=== PATIENT | female | born 1975 | race Caucasian/White ===

== ENCOUNTER 2017-07-27 20:09 | Emergency (ER) | payer OTHER, MEDICAID ==
[~2017-07-27] VITALS: Ht 162.6 cm; Wt 68.5 kg
[2017-07-27 20:15] VITALS: Ht 162.6 cm; Wt 68.5 kg
--- NOTE | 2017-07-27 20:59 | ERD ---
ER Documentation Chief Complaint Chief Complaint tongue numbness x 3 days, lips turning to R side x 1 day, R eye blurry HPI 42-year-old female who presents emergency department complaining of difficulty swallowing using a straw. Right sided facial droop, and right-sided facial numbness. She also stated that she feels like that her tongue turns to the right side when she was drinking water this morning. Stated that this happened is morning. 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 Denies headache, throat pain, shoulder pain, back pain, abdomen, nausea, vomiting, constipation, diarrhea, loss of bowel bladder control, trauma, injury , falls, fever, chills. ROS All systems reviewed and are negative except as per history of present illness. Medications Home Meds Active Scripts Hydroxyzine Hcl* (Hydroxyzine Hcl*) 50 Mg Tablet, 50 MG PO Q6 Y for ANXIETY, # 40 TAB Prov:PASILABAN,KLAR F 07/27/17 Lorazepam* (Lorazepam*) 1 Mg Tablet, 1 MG PO Q8, #10 TAB Prov:PASILABAN,KLAR F 07/27/17 Allergies Allergies: Coded Allergies: No Known Allergy (Unverified , 07/27/17) Physical Exam Vitals Vital Signs Date Time Temp Pulse Resp B/P Pulse Ox O2 Delivery O2 Flow Rate FiO2 07/28/17 00:06 98.1 83 20 120/67 Room Air 07/27/17 20:15 98.2 103 20 131/81 100 Physical Exam Const: Awake and able to make her needs known. Head: Atraumatic Eyes: Normal Conjunctiva. Right-sided facial asymmetry. Able to close bilateral eyes. Able to raise bilateral eyebrows. ENT: Normal External Ears, Nose and Mouth. Neck: Full range of motion..~ No meningismus. Resp: Clear to auscultation bilaterally Cardio: Regular rate and rhythm, no murmurs Abd: Soft, non tender, non distended. Normal bowel sounds Skin: No petechiae or rashes Back: No midline or flank tenderness Ext: No cyanosis, or edema Neur: Awake and alert 4. Equal php website developer. Equal strength in upper and lower extremities bilaterally. No numbness or tingling sensation. Romberg test is negative. Psych: Normal Mood and Affect Result Diagram: 07/27/17211607/27/172116 Results 24 hrs Laboratory Tests Test 07/27/17 21:17 White Blood Count 8.910^3/ul Red Blood Count 4.1710^6/ul Hemoglobin 13.5g/dl Hematocrit 38.0% Mean Corpuscular Volume 91.1fl Mean Corpuscular Hemoglobin 32.4pg Mean Corpuscular Hemoglobin Concent 35.5g/dl Red Cell Distribution Width 11.9% Platelet Count 14695^3/UL Mean Platelet Volume 10.4fl Neutrophils % 63.1% Lymphocytes % 25.5% Monocytes % 6.7% Eosinophils % 3.9% Basophils % 0.6% Nucleated Red Blood Cells % 0.0/100WBC Neutrophils # 5.610^3/ul Lymphocytes # 2.310^3/ul Monocytes # 0.610^3/ul Eosinophils # 0.410^3/ul Basophils # 0.110^3/ul Nucleated Red Blood Cells # 0.010^3/ul Prothrombin Time 12.9Sec Prothrombin Time Ratio 1.0 INR International Normalized Ratio 0.96 Activated Partial Thromboplast Time 33.8Sec Sodium Level 141mmol/L Potassium Level 3.6mmol/L Chloride Level 103mmol/L Carbon Dioxide Level 27mmol/L Anion Gap 15 Blood Urea Nitrogen 7mg/dl Creatinine 0.61mg/dl Glucose Level 109mg/dl Calcium Level 9.8mg/dl Total Bilirubin 0.2mg/dl Direct Bilirubin 0.00mg/dl Indirect Bilirubin 0.2mg/dl Aspartate Amino Transf (AST/SGOT) 25IU/L Alanine Aminotransferase (ALT/SGPT) 40IU/L Alkaline Phosphatase 88IU/L Troponin I < 0.012ng/ml Total Protein 8.1g/dl Albumin 4.5g/dl Globulin 3.60g/dl Albumin/Globulin Ratio 1.25 Serum HCG, Qualitative NEGATIVE Procedures/MDM Discussed his case with supervising physician, Dr. Rivas Miller who agreed to workup the patient. EKG: Normal sinus rhythm with a ventricular rate of 87 bpm. Read by supervising physician, Dr. Rivas Ponce. CT of the brain: No evidence of acute intracranial pathology. The brain is normal in appearance. Blood works was negative. This was discussed with supervising physician, Dr. Rivas Marino agreed with my medical decision making to discharge patient with a final diagnosis anxiety. Differential diagnosis: I have low suspicion for Valiente's palsy and stroke given the patient's physical exam and diagnostic workups. Final diagnosis: Anxiety. Prescription: Ativan. Hydroxyzine. Follow-up with PCP in the next 3-4 days. Come back here in the emergency department for any new symptoms or any worsening symptoms. All questions and concerns are answered. Patient and family member verbalized understanding and agreed with the plan of care. Hemodynamically stable on discharge. Departure Diagnosis: Primary Impression: Anxiety Condition: Stable Additional Instructions: Follow-up with PCP in the next 3-4 days. Come back here in the emergency department for any new symptoms or any worsening symptoms. All questions and concerns are answered. Patient and family member verbalized understanding and agreed with the plan of care. JULIENNE ALVARADO Jul 27, 2017 20:59
[2017-07-27 22:08] LABS: BASOPHIL # 0.1 10^3/ul (0.0-0.1); BASOPHILS % 0.6 % (0.0-2.0); EOSINOPHILS # 0.4 10^3/ul (0.0-0.5); EOSINOPHILS % 3.9 % (0.0-7.0); HEMOGLOBIN 13.5 g/dl (12.0-16.0); LYMPHOCYTES # 2.3 10^3/ul (0.8-2.9); LYMPHOCYTES % 25.5 % (15.0-51.0); MEAN CORPUSCULAR HEMOGLOBIN 32.4 pg (29.0-33.0); MEAN CORPUSCULAR HGB CONC 35.5 g/dl (32.0-37.0); MEAN CORPUSCULAR VOLUME 91.1 fl (82.0-101.0); MEAN PLATELET VOLUME 10.4 fl (7.4-10.4); MONOCYTE # 0.6 10^3/ul (0.3-0.9); MONOCYTES % 6.7 % (0.0-11.0); NEUTROPHIL # 5.6 10^3/ul (1.6-7.5); NEUTROPHILS % 63.1 % (39.0-77.0); PLATELET COUNT 282 10^3/UL (140-415); RED BLOOD COUNT 4.17 10^6/ul (4.20-5.40); RED CELL DISTRIBUTION WIDTH 11.9 % (11.5-14.5); WHITE BLOOD COUNT 8.9 10^3/ul (4.8-10.8)
--- NOTE | 2017-07-27 22:11 | RADRPT ---
PROCEDURE: CT Brain without contrast. CLINICAL INDICATION: Facial numbness TECHNIQUE: A CT of the brain was performed on a us multidetector CT scanner utilizing axial imagin g from the skull base through the vertex without IV contrast. Multiplanar reformatted images were m marguerite. Images were reviewed on a PACS workstation. The CTDIvol is 45 mGy and the DLP is 720 mGycm. DICOM images are available. One or more of the following dose reduction techniques were utilized: 1.) Automated exposure control 2.) Adjustment of the mA +/- kV according to patient's size 3.) Use of iterative reconstruction technique. COMPARISON: None FINDINGS: There is no intracranial hemorrhage, mass effect, or midline shift. No extra-axial fluid collection is seen. The ventricles and sulci are normal in size and configuration. The density of the brain is normal, and the elizondo white matter differentiation appears well-preserved. The visualized paranasal sinuses and osseous structures are grossly unremarkable. IMPRESSION: 1. No evidence of acute intracranial pathology. 2. The brain is normal in appearance. .Andre Jacobson MD, MD Date Time Electronically viewed and signed by .Andre Jacobson MD, MD on 07/27/2017 22:11 .A/
[2017-07-27 22:27] LABS: INR 0.96; PARTIAL THROMBOPLASTIN TIME 33.8 Sec (25.0-35.0); PROTIME 12.9 Sec (11.9-14.9)
[2017-07-27 22:51] LABS: ALBUMIN 4.5 g/dl (3.3-4.9); ALBUMIN/GLOBULIN RATIO 1.25; BILIRUBIN,INDIRECT 0.2 mg/dl (0-1.1); BILIRUBIN,TOTAL 0.2 mg/dl (0.2-1.3); CALCIUM 9.8 mg/dl (8.4-10.2); CREATININE 0.61 mg/dl (0.44-1.00); POTASSIUM 3.6 mmol/L (3.5-5.1); TOTAL PROTEIN 8.1 g/dl (6.1-8.1)
[2017-07-27] MEDS ORDERED: LORA1TAB PO (23:22)
[2017-07-27] MEDS ORDERED: HYDR-3012 PO (23:23)
[2017-07-28 00:06] VITALS: BP 120/67; PULSE 83; RESP 20; TEMP 98.1
== END 2017-07-28 00:08 | disposition home or self-care (01) ==
LOC: FTE 20:09
DX: F41.9 Anxiety disorder, unspecified (principal); R06.02 Shortness of breath; R93.0 Abnormal findings on diagnostic imaging of skull and head, not elsewhere classified
CPT/HCPCS: 70450; 80053; 84484; 84703; 85025; 85610; 85730; 93005

== ENCOUNTER 2018-08-26 12:26 | Emergency (ER) | payer OTHER, MEDICAID ==
[~2018-08-26] VITALS: Ht 157.5 cm; Wt 70.3 kg
[~2018-08-26 12:26] MED LIST: HYDR50TA15 PO; LORA1TAB PO
[2018-08-26 12:28] VITALS: BP 118/72; PULSE 108; RESP 27; Ht 157.5 cm; Wt 70.3 kg
[2018-08-26] MEDS ORDERED: AZITHROMYCIN 250 MG TAB PO ONE (15:00)
[2018-08-26] MEDS ORDERED: CEFTRIAXONE 250 MG INJ IM ONE (15:00)
[2018-08-26] MEDS ORDERED: D-ME118S24 PO (15:10)
[2018-08-26] MEDS ORDERED: TYL500 PO (15:10)
--- NOTE | 2018-08-26 20:30 | ERD ---
ER Documentation Chief Complaint Chief Complaint shortness of breath; pt woke up and cant breath; chest pain and back pain HPI 43-year-old female presents with shortness of breath times 2 days. There is also associated cough and chest pressure. Patient also with some lightheadedness and weak legs. She denies any fevers or chills. There is associated body aches. She took Tylenol Motrin at home with only mild relief. She does have a past medical history of stomach ulcers. Patient also states that she is been worried about having an STD. No other complaints. ROS All systems reviewed and are negative except as per history of present illness. Medications Home Meds Active Scripts Acetaminophen* (Tylenol*) 500 Mg Tab, 500 MG PO Q4H PRN for MILD PAIN LEVEL 1-3, #30 TAB Prov:VANCE AGUILAR DO 08/26/18 D-Methorphan Hb/P-Epd HCl/Bpm (Pwkvxbbiiv-Umxfrflpjbe-Hl Syr) 118 Ml Syrup, 5 ML PO Q4H PRN for COUGH, #1 BOTTLE Prov:VANCE AGUILAR 08/26/18 Hydroxyzine Hcl* (Hydroxyzine Hcl*) 50 Mg Tablet, 50 MG PO Q6 PRN for ANXIETY, #40 TAB Prov:JULIENNE ALVARADO 07/27/17 Lorazepam* (Lorazepam*) 1 Mg Tablet, 1 MG PO Q8, #10 TAB Prov:CHRISTIANORACHELCHAYITO F 07/27/17 Allergies Allergies: Coded Allergies: No Known Allergy (Unverified , 08/26/18) PMhx/Soc Hx Miscellaneous Medical Probl: Yes (left ovarian cyst/mass, heavy mestration, left breast biopsy) Hx Alcohol Use: No Hx Substance Use: No Hx Tobacco Use: No Smoking Status: Never smoker Physical Exam Vitals Vital Signs Date Temp Pulse Resp B/P (MAP) Pulse Ox O2 O2 Flow FiO2 Time Delivery Rate 08/26/18 99.4 108 27 118/72 100 12:28 (87) Physical Exam Const: No acute distress Head: Atraumatic Eyes: Normal Conjunctiva ENT: Normal External Ears, bilateral tympanic membrane intact without erythema or bulging noted, nose and Mouth examination normal, no tonsillar swelling or exudate noted Neck: Full range of motion. No meningismus. Resp: Clear to auscultation bilaterally, no wheezing, rales, rhonchi Cardio: Regular rate and rhythm, no murmurs Skin: No petechiae or rashes Ext: No cyanosis, or edema Neur: Awake and alert Psych: Normal Mood and Affect Results 24 hrs Current Medications Medications Dose Sig/[place] Start Time Status Last (Trade) Ordered Route PRN Stop Time Admin Dose Reason Admin 1,000 mg ONCE ONCE 08/26/18 DC Azithromycin PO 15:00 (Zithromax) 08/26/18 15:03 Ceftriaxone 250 mg ONCE ONCE 08/26/18 DC Sodium IM 15:00 (Rocephin) 08/26/18 15:03 Procedures/MDM Medical Decision Making: Differential diagnosis includes but not limited to upper respiratory infection, pneumonia, sepsis, meningitis. Patient appeared well on physical examination, nontoxic appearing. Lungs were clear to auscultation bilaterally. There is low suspicion for pneumonia, sepsis, meningitis. Given history of complaints of shortness of breath EKG and chest x-ray were ordered. EKG showed sinus tachycardia heart rate 108, no ST or T wave changes. Chest x-ray was unremarkable. Patient likely has an upper respiratory infection, likely viral. Discussed symptomatic treatment with patient who agrees with plan. Patient given prescription for supportive medications. Given concerns of STD, patient treated empirically for GC chlamydia. Patient was given IM Rocephin and azithromycin in the ER. Patient advised to follow up with PCP in 1-2 days. Patient advised to return to ED for new or worsening symptoms. Patient stable on discharge from the ED. Disclaimer: Inadvertent spelling and grammatical errors are likely due to EHR/dictation software use and do not reflect on the overall quality of patient care. Also, please note that the electronic time recorded on this note does not necessarily reflect the actual time of the patient encounter. Departure Diagnosis: Primary Impression: URI (upper respiratory infection) Condition: Fair Patient Instructions: Preventing Common Respiratory Infections Referrals: COMMUNITY CLINICS YOU HAVE RECEIVED A MEDICAL SCREENING EXAM AND THE RESULTS INDICATE THAT YOU DO NOT HAVE A CONDITION THAT REQUIRES URGENT TREATMENT IN THE EMERGENCY DEPARTMENT. FURTHER EVALUATION AND TREATMENT OF YOUR CONDITION CAN WAIT UNTIL YOU ARE SEEN IN YOUR DOCTORS OFFICE WITHIN THE NEXT 1-2 DAYS. IT IS YOUR RESPONSIBILITY TO MAKE AN APPOINTMENT FOR FOLOW-UP CARE. IF YOU HAVE A PRIMARY DOCTOR --you should call your primary doctor and schedule an appointment IF YOU DO NOT HAVE A PRIMARY DOCTOR YOU CAN CALL OUR PHYSICIAN REFERRAL HOTLINE AT IF YOU CAN NOT AFFORD TO SEE A PHYSICIAN YOU CAN CHOSE FROM THE FOLLOWING [facility] [address] [facility] [address] [facility] [address] [facility] [address] [facility]. [facility] [address] [facility]. [facility]. [address] Additional Instructions: Call your primary care doctor TOMORROW for an appointment during the next 1-2 days.See the doctor sooner or return here if your condition worsens before your appointment time. VANCE AGUILAR DO Aug 26, 2018 20:30
== END 2018-08-26 15:22 | disposition home or self-care (01) ==
LOC: FTE 12:26
DX: J06.9 Acute upper respiratory infection, unspecified (principal)
CPT/HCPCS: 71046; 93005